=== PATIENT | male | born 1960 | race Caucasian/White ===

== ENCOUNTER 2020-02-13 17:18 | Outpatient (CLI) | payer BC, SELFPAY ==
--- NOTE | ~2020-02-13 | XR_ITS ---
XR ankle LT 2V 02/13/2020 17:40 Indication: Left ankle pain Procedure: 2 views left ankle Comparison: 2 views left ankle Findings: No fracture, subluxation or dislocation. There are degenerative calcaneal enthesophytes. An kle mortise intact. Lisfranc joint intact. No foreign bodies. Impression: 1: No acute bone or joint abnormality. Reviewed, dictated and finalized at location A. Impression: 1: No acute bone or joint abnormality.
[2020-02-13 18:13] LABS: Hematocrit 40.8 % (42.0-52.0); Hemoglobin 14.7 g/dL (14.0-18.0); Mean Corpuscular Volume 91.7 fl (80-100); Mean Platelet Volume 9.1 fl (7.4-10.4); Platelet Count Result 183 k/mm3 (150-375); Red Blood Count 4.45 M/mm3 (4.6-6.20); Red Cell Distribution Width 12.6 % (11.5-14.5); White Blood Count 6.8 K/mm3 (4.5-10.0)
[2020-02-13 18:27] LABS: Blood Urea Nitrogen 19 mg/dL (9-20); Calcium 9.4 mg/dL (8.4-10.2); Carbon Dioxide 26 mmol/L (22-30); Chloride 104 mmol/L (98-107); Estimated Glomerular Filt Rate > 60; Glucose 168 mg/dL (75-110); Potassium 4.5 mmol/L (3.4-5.0); Sodium 134 mmol/L (137-145); Uric Acid 8.3 mg/dL (3.5-8.5)
== END 2020-02-13 17:19 | disposition home or self-care (01) ==
PROVIDERS: PCP Family Medicine; Visit Provider Nurse Practitioner Family
DX: M79.673 Pain in unspecified foot (principal)
CPT/HCPCS: 36415; 73600; 80048; 84550; 85027

== ENCOUNTER 2021-06-19 09:56 | Outpatient (CLI) | payer BC, SELFPAY ==
--- NOTE | 2021-06-19 11:15 | NEURO_ITS ---
Impression: # Complains of numbness of feet. History of type II diabetes. # Distal neuropathy. # EDB needle/EMG exam is neurogenic. # Clinical correlation recommended. Nerve Conduction Studies Anti Sensory Summary Table Stim Site NR Peak (ms) P-T Amp (?V) Site1 Site2 Delta-P (ms) Dist (cm) Bertrand (m/s) Left Sup Fibular Anti Sensory (Ant Lat Mall) 14 cm 4.0 21.5 14 cm Ant Lat Mall 4.0 16.0 40 Right Sup Fibular Anti Sensory (Ant Lat Mall) 14 cm 3.8 8.1 14 cm Ant Lat Mall 3.8 16.0 42 Left Sural Anti Sensory (Lat Mall) Calf 4.0 5.5 Calf Lat Mall 4.0 16.0 40 Right Sural Anti Sensory (Lat Mall) Calf 3.5 5.7 Calf Lat Mall 3.5 16.0 46 Motor Summary Table Stim Site NR Onset (ms) O-P Amp (mV) Site1 Site2 Delta-0 (ms) Dist (cm) Bertrand (m/s) Left Peroneal Motor (Vastus Med) Ankle 5.6 3.2 Popit Ankle 9.2 39.0 42 Popit 14.8 2.6 Right Peroneal Motor (Vastus Med) Ankle 5.2 1.9 Popit Ankle 7.8 35.0 45 Popit 13.0 2.4 Left Tibial Motor (Abd Vinson Brev) Ankle 5.7 4.6 Knee Ankle 9.5 42.0 44 Knee 15.2 2.9 Right Tibial Motor (Abd Vinson Brev) Ankle 5.7 4.6 Knee Ankle 9.0 40.0 44 Knee 14.7 3.3 F Wave Studies NR F-Lat (ms) L-R F-Lat (ms) Left Peroneal (Mrkrs) (EDB) 56.58 0.53 Right Peroneal (Mrkrs) (EDB) 56.06 0.53 Left Tibial (Mrkrs) (Abd Hallucis) 56.73 0.09 Right Tibial (Mrkrs) (Abd Hallucis) 56.65 0.09 EMG Side Muscle Nerve Root Ins Act Fibs Amp Dur Recrt Comment Right AntTibialis Dp Br Fibular L4-5 Nml Nml Nml Nml Nml Right Gastroc Tibial S1-2 Nml Nml Nml Nml Nml Right Fibularis Long Sup Br Fibular L5-S1 Nml Nml Nml Nml Nml Right Flex Dig Long Tibial L5-S2 Nml Nml Nml Nml Nml Right Ext Dig Brev Dp Br Fibular L5, S1 Nml Nml Incr >12ms Reduced Left AntTibialis Dp Br Fibular L4-5 Nml Nml Nml Nml Nml Left Gastroc Tibial S1-2 Nml Nml Nml Nml Nml Left Fibularis Long Sup Br Fibular L5-S1 Nml Nml Nml Nml Nml Left Flex Dig Long Tibial L5-S2 Nml Nml Nml Nml Nml Left Ext Dig Brev Dp Br Fibular L5, S1 Nml Nml Incr >12ms Reduced MTDD
== END 2021-06-19 09:57 | disposition home or self-care (01) ==
LOC: ANHNEURO 09:56
PROVIDERS: PCP Family Medicine; Visit Provider Family Medicine
DX: R20.0 Anesthesia of skin (principal); G62.9 Polyneuropathy, unspecified
CPT/HCPCS: 95886; 95910

== ENCOUNTER 2022-04-28 10:19 | Outpatient (CLI) | payer BC, SELFPAY ==
[2022-04-28 10:29] LABS: Hemoglobin 13.9 g/dL (14.0-18.0); Mean Corpuscular HGB Conc 33.9 g/dl (32-36); Mean Corpuscular Hemoglobin 33.5 pg (26-34); Mean Corpuscular Volume 98.8 fl (80-100); Mean Platelet Volume 9.1 fl (7.4-10.4); Platelet Count Result 154 k/mm3 (150-375); Red Blood Count 4.15 M/mm3 (4.6-6.20); Red Cell Distribution Width 11.9 % (11.5-14.5); White Blood Count 7.3 K/mm3 (4.5-10.0)
[2022-04-28 10:42] LABS: Alanine Aminotransferase 25 U/L (6-50); Alkaline Phosphatase 82 U/L (38-126); Anion Gap 7 mmol/L (8-16); Aspartate Amino Transferase 22 U/L (17-59); Bilirubin,Total 0.4 mg/dL (0.2-1.3); Blood Urea Nitrogen 28 mg/dL (9-20); Calcium 8.7 mg/dL (8.4-10.2); Carbon Dioxide 25 mmol/L (22-30); Chloride 107 mmol/L (98-107); Cholesterol 137 mg/dL (0-200); Estimated Glomerular Filt Rate 48; Glucose 206 mg/dL (65-110); HDL Direct 36 mg/dL; Sodium 139 mmol/L (137-145); Triglycerides 269 mg/dL (<150)
[2022-04-28 10:52] LABS: LDL Cholesterol Direct 53 mg/dL
[2022-04-28 11:11] LABS: Prostate Specific Antigen 1.5 ng/mL (< OR = 4.0)
== END 2022-04-28 10:20 | disposition home or self-care (01) ==
PROVIDERS: PCP Family Medicine; Visit Provider Family Medicine
DX: Z12.5 Encounter for screening for malignant neoplasm of prostate (principal); E78.2 Mixed hyperlipidemia; Z13.220 Encounter for screening for lipoid disorders; I10 Essential (primary) hypertension; G62.9 Polyneuropathy, unspecified
CPT/HCPCS: 36415; 80048; 80061; 80076; 82607; 84153; 85027; G0103

== ENCOUNTER 2023-01-06 11:46 | Outpatient (CLI) | payer BC, SELFPAY ==
[2023-01-06 12:17] LABS: Mean Corpuscular HGB Conc 33.3 g/dl (32-36); Mean Corpuscular Hemoglobin 32.3 pg (26-34); Mean Corpuscular Volume 96.8 fl (80-100); Mean Platelet Volume 9.4 fl (7.4-10.4); Platelet Count Result 168 k/mm3 (150-375); Red Blood Count 4.34 M/mm3 (4.6-6.20); Red Cell Distribution Width 12.3 % (11.5-14.5); White Blood Count 7.8 K/mm3 (4.5-10.0)
[2023-01-06 12:33] LABS: Alanine Aminotransferase 23 U/L (6-50); Albumin Level 4.1 g/dL (3.5-5.1); Alkaline Phosphatase 77 U/L (38-126); Anion Gap 9 mmol/L (8-16); Aspartate Amino Transferase 24 U/L (17-59); Bilirubin,Total 0.6 mg/dL (0.2-1.3); Blood Urea Nitrogen 22 mg/dL (9-20); Calcium 8.9 mg/dL (8.4-10.2); Carbon Dioxide 26 mmol/L (22-30); Chloride 105 mmol/L (98-107); Estimated Glomerular Filt Rate 56; Glucose 120 mg/dL (65-110); Potassium 4.9 mmol/L (3.4-5.0); Sodium 140 mmol/L (137-145)
[2023-01-06 12:47] LABS: Free T4 Free Thyroxine 1.01 ng/mL (0.78-2.19)
[2023-01-06 12:55] LABS: MALB Creatinine Ratio 11.9 mg/g (0-30); Microalbumin Urine Random 14.1 mg/L (0-16.7)
== END 2023-01-06 11:47 | disposition home or self-care (01) ==
PROVIDERS: PCP Family Medicine; Visit Provider Nurse Practitioner Family
DX: R53.83 Other fatigue (principal); I10 Essential (primary) hypertension; E11.9 Type 2 diabetes mellitus without complications; R63.4 Abnormal weight loss
CPT/HCPCS: 36415; 80053; 82043; 84439; 84443; 85027

== ENCOUNTER 2023-03-24 09:29 | Outpatient (CLI) | payer BC, SELFPAY ==
[2023-03-24 10:16] LABS: Hematocrit 42.8 % (42.0-52.0); Hemoglobin 14.3 g/dL (14.0-18.0); Mean Corpuscular HGB Conc 33.4 g/dl (32-36); Mean Corpuscular Hemoglobin 32.9 pg (26-34); Mean Corpuscular Volume 98.4 fl (80-100); Mean Platelet Volume 9.5 fl (7.4-10.4); Platelet Count Result 168 k/mm3 (150-375); Red Blood Count 4.35 M/mm3 (4.6-6.20); Red Cell Distribution Width 12.4 % (11.5-14.5); White Blood Count 7.6 K/mm3 (4.5-10.0)
[2023-03-24 10:27] LABS: Alanine Aminotransferase 18 U/L (6-50); Albumin Level 4.3 g/dL (3.5-5.1); Alkaline Phosphatase 86 U/L (38-126); Anion Gap 8 mmol/L (8-16); Aspartate Amino Transferase 22 U/L (17-59); Bilirubin,Total 0.7 mg/dL (0.2-1.3); Blood Urea Nitrogen 39 mg/dL (9-20); Calcium 9.2 mg/dL (8.4-10.2); Carbon Dioxide 27 mmol/L (22-30); Chloride 105 mmol/L (98-107); Cholesterol 152 mg/dL (0-200); Estimated Glomerular Filt Rate 52; Glucose 152 mg/dL (65-110); HDL Direct 40 mg/dL; Potassium 4.6 mmol/L (3.4-5.0); Sodium 140 mmol/L (137-145); Triglycerides 169 mg/dL (<150)
[2023-03-24 10:38] LABS: LDL Cholesterol Direct 81 mg/dL
== END 2023-03-24 09:30 | disposition home or self-care (01) ==
LOC: ANHLAB 09:31
PROVIDERS: PCP Family Medicine; Visit Provider Family Medicine
DX: E78.2 Mixed hyperlipidemia (principal); I10 Essential (primary) hypertension; Z13.220 Encounter for screening for lipoid disorders; G62.9 Polyneuropathy, unspecified
CPT/HCPCS: 36415; 80048; 80061; 80076; 82607; 84443; 85027

== ENCOUNTER 2023-03-31 13:23 | Outpatient (CLI) | payer BC, SELFPAY ==
--- NOTE | ~2023-03-31 | CT_ITS ---
EXAMINATION: CT abdomen pelvis w con DATE: 03/31/2023 13:52 INDICATION: Unspecified abdominal pain. Left lower quadrant abdominal pain for 4 weeks. TECHNIQUE: Computed tomography (CT) of the abdomen and pelvis was performed with 100 mL Omnipaque 350 intravenous contrast. Automated exposure control and iterative reconstruction technique were employe d. The dose-length product was 527.00 mGy-cm. COMPARISON: None. FINDINGS: The visualized portions of the lung bases demonstrate minimal atelectasis. No pleural effus ion. The heart size is normal. No pericardial effusion. There are cysts in the liver measuring up to 7 mm. The gallbladder is normal. There are low-attenuation lesions in the spleen measuring up to 5 mm , likely benign lesions such as granulomatous disease. The pancreas and adrenal glands are normal. Th ere is cortical thinning of the kidneys. There are no dilated loops of bowel. The appendix is normal. There is diverticulosis of the colon without evidence of diverticulitis. There are bilateral inguina l hernias containing fat. The prostate is moderately enlarged. There are no pathologically enlarged l ymph nodes. There is no free intraperitoneal fluid. There are chronic bilateral L5 pars defects. Ther e is 6 mm anterolisthesis of L5 on S1. There is severe lower lumbar spondylosis. There is mild chroni c anterior wedging of T11-L1 vertebral bodies. IMPRESSION: 1. Bilateral inguinal hernias containing fat. Reviewed, dictated and finalized at location A.
== END 2023-03-31 13:24 | disposition home or self-care (01) ==
PROVIDERS: PCP Family Medicine; Visit Provider Family Medicine
DX: R10.9 Unspecified abdominal pain (principal); K40.90 Unilateral inguinal hernia, without obstruction or gangrene, not specified as recurrent
CPT/HCPCS: 74177; Q9967

== ENCOUNTER 2023-07-17 00:44 | Day surgery (SDC) | payer BC, SELFPAY ==
[2023-07-06 09:28] VITALS: BMI 27.4
--- NOTE | 2023-07-15 09:48 | SUR.PREOP ---
Patient called regarding upcoming procedure. Message left on patient's voicemail regarding preop instructions, appointment times, and procedure prep.
--- NOTE | 2023-07-16 17:43 | PM.HPGS ---
History of Present Illness History of Present Illness Consent: Risks, benefits, and alternatives have been discussed and questions answered. Patient agrees to proceed with procedure. Chief complaint: neoplasm screening Narrative: Kirill Myers is a 62 year old male Referred for colon cancer screening. Review of Systems Review of Systems: All systems reviewed & are unremarkable except as noted in HPI and below PMFSH Past Medical History Medical History Ankle weakness Bilateral inguinal hernia BMI 28.0-28.9,adult BMI 29.0-29.9,adult BMI 31.0-31.9,adult BMI 32.0-32.9,adult BMI greater than 30 Degeneration of lumbar or lumbosacral intervertebral disc Essential (primary) hypertension Hypertension Kidney stones Left leg numbness Mixed hyperlipidemia Neuropathy Screen for colon cancer Surgical History Surgical History History of carpal tunnel surgery 2002 Hx of neck surgery 2012 Family History Family History Father Lung cancer Colon polyp Thyroid activity decreased Mother Breast cancer Sibling Breast cancer Brain cancer Sibling COPD (chronic obstructive pulmonary disease) Other Carcinoma of colon Diabetes mellitus Social History Social History Smoking status: Never smoker Second hand tobacco smoke exposure: Yes Alcohol intake: current Alcohol use details: Socially Substance use: never Substance use type: does not use Lack of Transportation: No Lack of Food: Never True Current Housing: I Have Housing Concerned About Future Housing: No Difficulty Paying Gas/Electric Bills: No Difficulty Paying for Meds: No Currently Unemployed: No Education: Trade/Vocational Certificate Difficulty w/ Childcare or Family Care: No Living arrangements: with family Occupation/Education: retired 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 Gender identity (if verbalized by the patient): Male Meds Home Medications and Allergies Home Medications Medication Instructions Recorded Confirmed Type rosuvastatin 10 mg tablet 10 mg PO DAILY #90 tabs 09/01/22 07/17/23 Rx meloxicam 15 mg tablet 15 mg PO DAILY #90 tabs 01/23/23 07/17/23 Rx dapagliflozin propanediol 10 mg See Rx Instructions .Route 03/02/23 07/17/23 Rx tablet (Farxiga) .COMPLEX #90 tabs escitalopram oxalate 20 mg tablet See Rx Instructions .Route 03/02/23 07/17/23 Rx .COMPLEX #90 tabs lisinopril 10 mg tablet 5 mg PO DAILY #45 tabs 03/24/23 07/17/23 Rx dulaglutide 1.5 mg/0.5 mL 1.5 mg (0.5 mL) subcut WEEKLY #6 mL 06/08/23 07/17/23 Rx subcutaneous pen injector (Trulicity) metformin 500 mg tablet,extended 1,000 mg PO BID 07/06/23 07/17/23 History release 24 hr Allergies Allergy/AdvReac Type Severity Reaction Status Date / Time No Known Allergies Allergy Verified 07/17/23 08:15 Exam Const: General: alert Orientation/consciousness: patient oriented x3 Resp: Auscultation: clear to auscultation bilaterally Cardio: Rhythm: regular rhythm GI: GI Palp: Yes Soft to palpation and No Tenderness to palpation present (GI) Neuro: General: patient oriented x3 Assessment and Plan Assessment and plan (1) Screen for colon cancer: Code(s): Z12.11 - Encounter for screening for malignant neoplasm of colon Status: Acute Assessment and Plan: Colonoscopy with possible biopsy or polypectomy or cautery or injection of substances.
[2023-07-17 08:20] VITALS: BP 146/77; PULSE 83; RESP 16; TEMP 35.8; O2SAT 100
[2023-07-17] MEDS: LACTATED RINGERS 1,000 ML 150 ML IV CONT (08:27)
[2023-07-17 08:32] LABS: Glucose Point of Care 159 mg/dl (65-105)
--- NOTE | 2023-07-17 08:42 | WPDANESEPPF ---
Anes - Initial Pre Proc Eval Procedure: Operation Date: 07/17/23 09:30 Proposed Procedures p Screening Colonoscopy - Jaison Díaz MD Date/Time: 07/17/23 08:42 Surgeon: Jaison Díaz MD Pre Op Diagnosis: neoplasm screening Patient Data Age: 62 Gender: M Height: 1.73 m Weight: 82.7 kg Last Vital Signs Temp 96.4 F L 07/17/23 08:20 Pulse 83 07/17/23 08:20 Resp 16 07/17/23 08:20 BP 146/77 H 07/17/23 08:20 Pulse Ox 100 07/17/23 08:20 O2 Del Method Room Air 07/17/23 08:20 Allergies Allergy/AdvReac Type Severity Reaction Status Date / Time No Known Allergies Allergy Verified 07/17/23 08:15 Home Medications Medication Instructions Recorded Confirmed Type rosuvastatin 10 mg tablet 10 mg PO DAILY #90 tabs 09/01/22 07/17/23 Rx meloxicam 15 mg tablet 15 mg PO DAILY #90 tabs 01/23/23 07/17/23 Rx dapagliflozin propanediol 10 mg See Rx Instructions .Route 03/02/23 07/17/23 Rx tablet (Farxiga) .COMPLEX #90 tabs escitalopram oxalate 20 mg tablet See Rx Instructions .Route 03/02/23 07/17/23 Rx .COMPLEX #90 tabs lisinopril 10 mg tablet 5 mg PO DAILY #45 tabs 03/24/23 07/17/23 Rx dulaglutide 1.5 mg/0.5 mL 1.5 mg (0.5 mL) subcut WEEKLY #6 mL 06/08/23 07/17/23 Rx subcutaneous pen injector (Trulicity) metformin 500 mg tablet,extended 1,000 mg PO BID 07/06/23 07/17/23 History release 24 hr Laboratory Tests 07/17/23 08:29 POC Capillary Glucose 159 H mg/dl (65-105) Patient hx anesthesia problems: none Family hx anesthesia problems: none Results Review: All pre-operative results and documents have been reviewed as part of the pre-operative evaluation. [facility] Past Medical History Medical History Ankle weakness Bilateral inguinal hernia BMI 28.0-28.9,adult BMI 29.0-29.9,adult BMI 31.0-31.9,adult BMI 32.0-32.9,adult BMI greater than 30 Degeneration of lumbar or lumbosacral intervertebral disc Essential (primary) hypertension Hypertension Kidney stones Left leg numbness Mixed hyperlipidemia Neuropathy Screen for colon cancer Surgical History Surgical History History of carpal tunnel surgery 2002 Hx of neck surgery 2012 Family History Family History Father Lung cancer Colon polyp Thyroid activity decreased Mother Breast cancer Sibling Breast cancer Brain cancer Sibling COPD (chronic obstructive pulmonary disease) Other Carcinoma of colon Diabetes mellitus Social History Social History Smoking status: Never smoker Second hand tobacco smoke exposure: Yes Alcohol intake: current Alcohol use details: Socially Substance use: never Substance use type: does not use Lack of Transportation: No Lack of Food: Never True Current Housing: I Have Housing Concerned About Future Housing: No Difficulty Paying Gas/Electric Bills: No Difficulty Paying for Meds: No Currently Unemployed: No Education: Trade/Vocational Certificate Difficulty w/ Childcare or Family Care: No Living arrangements: with family Occupation/Education: retired 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
[2023-07-17 09:27] VITALS: BP 119/75; PULSE 79; RESP 20; O2SAT 100
[2023-07-17 09:37] VITALS: BP 111/74; PULSE 78; RESP 21; O2SAT 100
[2023-07-17 09:47] VITALS: BP 108/81; PULSE 75; RESP 26; O2SAT 100
== END 2023-07-17 09:52 | disposition home or self-care (01) ==
PROVIDERS: PCP Family Medicine; Visit Provider Internal Medicine Gastroenterology
PROC: 0DJD8ZZ Inspection of Lower Intestinal Tract, Via Natural or Artificial Opening Endoscopic (ICD-10-PCS; CPT 45378; principal; 2023-07-17 09:30)
DX: Z12.11 Encounter for screening for malignant neoplasm of colon (principal); K57.30 Diverticulosis of large intestine without perforation or abscess without bleeding; Q27.33 Arteriovenous malformation of digestive system vessel; Z80.0 Family history of malignant neoplasm of digestive organs; I10 Essential (primary) hypertension; E78.2 Mixed hyperlipidemia; G62.9 Polyneuropathy, unspecified; Z79.84 Long term (current) use of oral hypoglycemic drugs; Z79.85 Long-term (current) use of injectable non-insulin antidiabetic drugs
CPT/HCPCS: 45388; 82948; J2704; J7120

== ENCOUNTER 2024-04-12 07:54 | Outpatient (CLI) | payer BC, SELFPAY ==
--- NOTE | ~2024-04-12 | XR_ITS ---
EXAMINATION: XR UGIAC w kub DATE: 04/12/2024 09:07 INDICATION: Epigastric pain TECHNIQUE: Thick barium contrast with gas effervescent crystals were administered orally. Fluoroscop ic images of the esophagus, stomach, and proximal duodenum were obtained in various projections. Ther e are 38 images. FINDINGS: There is a small Zenker's diverticulum. Otherwise, esophageal mucosal pattern is within normal limits . There is no hiatal hernia. No gastroesophageal reflux witnessed during the course of the study. The gastric folds are normal. The proximal duodenum is also normal in appearance. IMPRESSION: 1. Small Zenker's diverticulum. Reviewed, dictated and finalized at location B.
--- NOTE | ~2024-04-12 | US_ITS ---
Abdominal Sonogram: Real-time sonographic imaging of the abdomen was performed. Clinical History: Epigastric pain Findings: The liver appears normal with no evidence of mass lesion or bile duct dilatation. Main por frank vein demonstrates normal direction of flow. The spleen is normal in size without evidence of foca l lesion. The gallbladder is well distended, and appears normal with no evidence of gallstone or wal l thickening. The common bile duct measures 4 mm. The visualized pancreas, aorta, and IVC are unrema rkable. The right kidney measures 10.1 cm in length and the left kidney measures 10.3 cm. There is no hydronephrosis or renal calculus. Impression: Unremarkable abdominal ultrasound. Reviewed, dictated and finalized at location . Impression: Unremarkable abdominal ultrasound.
== END 2024-04-12 07:55 | disposition home or self-care (01) ==
LOC: MICIMG 07:55
PROVIDERS: PCP Family Medicine; Visit Provider Family Medicine
DX: R10.13 Epigastric pain (principal); K22.5 Diverticulum of esophagus, acquired
CPT/HCPCS: 74246; 76700

== ENCOUNTER 2024-05-10 01:10 | Day surgery (SDC) | payer BC, SELFPAY ==
[2024-04-29 11:16] VITALS: BMI 28.2
[2024-05-10 14:15] VITALS: BP 129/77; PULSE 74; RESP 18; TEMP 36.1; O2SAT 100; BMI 29.2
--- NOTE | 2024-05-10 14:41 | WPDANESEPPF ---
Anes - Initial Pre Proc Eval Procedure: Operation Date: 05/10/24 15:30 Proposed Procedures p Esophagogastroduodenoscopy - Antony Clayton MD Date/Time: 05/10/24 14:41 Surgeon: Antony Clayton MD Pre Op Diagnosis: Diverticulum of esophagus Patient Data Age: 63 Gender: M Height: 1.7 m Weight: 84.9 kg Last Vital Signs Temp 96.9 F L 05/10/24 14:15 Pulse 74 05/10/24 14:15 Resp 18 05/10/24 14:15 BP 129/77 05/10/24 14:15 Pulse Ox 100 05/10/24 14:15 O2 Del Method Room Air 05/10/24 14:15 Allergies Allergy/AdvReac Type Severity Reaction Status Date / Time No Known Allergies Allergy Verified 05/10/24 14:26 Home Medications Medication Instructions Recorded Confirmed Type rosuvastatin 10 mg tablet See Rx Instructions .Route 08/27/23 05/10/24 Rx .COMPLEX #90 tabs metformin 500 mg tablet,extended See Rx Instructions .Route 10/29/23 05/10/24 Rx release 24 hr .COMPLEX #360 tabs lisinopril 10 mg tablet 5 mg PO DAILY #45 tabs 12/24/23 05/10/24 Rx dulaglutide 1.5 mg/0.5 mL 1.5 mg (0.5 mL) subcut WEEKLY #6 mL 01/08/24 05/10/24 Rx subcutaneous pen injector (Trulicity) dapagliflozin propanediol 10 mg See Rx Instructions .Route 02/23/24 05/10/24 Rx tablet (Farxiga) .COMPLEX #90 tabs escitalopram oxalate 20 mg tablet See Rx Instructions .Route 02/23/24 05/10/24 Rx .COMPLEX #90 tabs meloxicam 15 mg tablet See Rx Instructions .Route 04/21/24 05/10/24 Rx .COMPLEX #90 tabs omeprazole 40 mg capsule,delayed 40 mg PO DAILY #30 caps 04/27/24 05/10/24 Rx release Patient hx anesthesia problems: none Family hx anesthesia problems: none Results Review: All pre-operative results and documents have been reviewed as part of the pre-operative evaluation. [facility] Past Medical History Medical History Ankle weakness Arthritis of both hands Bilateral inguinal hernia Degeneration of lumbar or lumbosacral intervertebral disc Epigastric pain Essential (primary) hypertension Hypertension Kidney stones Left leg numbness Mixed hyperlipidemia Neuropathy Screen for colon cancer Zenker's diverticulum Surgical History Surgical History History of carpal tunnel surgery 2002 Hx of colonoscopy Hx of neck surgery 2013 Family History Family History Father Lung cancer Colon polyp Thyroid activity decreased Mother Breast cancer Sibling Breast cancer Brain cancer Sibling COPD (chronic obstructive pulmonary disease) Other Carcinoma of colon Diabetes mellitus Social History Social History Smoking status: Never smoker Second hand tobacco smoke exposure: Yes Alcohol intake: current Drinks per week: 6 Alcohol use details: Socially Substance use: never Substance use type: does not use Do You Feel Safe in your Home?: Yes Lack of Transportation: No Lack of Food: Never True Current Housing: I Have Housing Concerned About Future Housing: No Difficulty Paying Gas/Electric Bills: No Difficulty Paying for Meds: No Currently Unemployed: No Education: Trade/Vocational Certificate Difficulty w/ Childcare or Family Care: No Living arrangements: alone Occupation/Education: retired 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 ) Neurological: alert and oriented Last oral intake: >/= 8 hours ASA classification: III E
[2024-05-10 14:47] LABS: Glucose Point of Care 114 mg/dl (65-105)
[2024-05-10] MEDS: LACTATED RINGERS 1,000 ML 150 ML IV CONT (14:48)
--- NOTE | 2024-05-10 14:54 | PM.HPGS ---
History of Present Illness History of Present Illness Consent: Risks, benefits, and alternatives have been discussed and questions answered. Patient agrees to proceed with procedure. Chief complaint: Diverticulum of esophagus Narrative: Kirill Myers is a 63 year old male with some abdominal discomfort about 2 months ago and emesis, then PCP ordered UGI that showed possible zenker diverticula. Started on omeprazole Review of Systems Review of Systems: All systems reviewed & are unremarkable except as noted in HPI and below PMFSH Past Medical History Medical History (Updated 05/10/24 @ 14:55 by Antony Clayton MD) Abnormal UGI series Ankle weakness Arthritis of both hands Bilateral inguinal hernia Degeneration of lumbar or lumbosacral intervertebral disc Epigastric pain Essential (primary) hypertension Hypertension Kidney stones Left leg numbness Mixed hyperlipidemia Neuropathy Screen for colon cancer Zenker's diverticulum Surgical History Surgical History History of carpal tunnel surgery 2002 Hx of colonoscopy Hx of neck surgery 2013 Family History Family History Father Lung cancer Colon polyp Thyroid activity decreased Mother Breast cancer Sibling Breast cancer Brain cancer Sibling COPD (chronic obstructive pulmonary disease) Other Carcinoma of colon Diabetes mellitus Social History Social History Smoking status: Never smoker Second hand tobacco smoke exposure: Yes Alcohol intake: current Drinks per week: 6 Alcohol use details: Socially Substance use: never Substance use type: does not use Do You Feel Safe in your Home?: Yes Lack of Transportation: No Lack of Food: Never True Current Housing: I Have Housing Concerned About Future Housing: No Difficulty Paying Gas/Electric Bills: No Difficulty Paying for Meds: No Currently Unemployed: No Education: Trade/Vocational Certificate Difficulty w/ Childcare or Family Care: No Living arrangements: alone Occupation/Education: retired 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 Gender identity (if verbalized by the patient): Male Meds Home Medications and Allergies Home Medications Medication Instructions Recorded Confirmed Type rosuvastatin 10 mg tablet See Rx Instructions .Route 08/27/23 05/10/24 Rx .COMPLEX #90 tabs metformin 500 mg tablet,extended See Rx Instructions .Route 10/29/23 05/10/24 Rx release 24 hr .COMPLEX #360 tabs lisinopril 10 mg tablet 5 mg PO DAILY #45 tabs 12/24/23 05/10/24 Rx dulaglutide 1.5 mg/0.5 mL 1.5 mg (0.5 mL) subcut WEEKLY #6 mL 01/08/24 05/10/24 Rx subcutaneous pen injector (Trulicity) dapagliflozin propanediol 10 mg See Rx Instructions .Route 02/23/24 05/10/24 Rx tablet (Farxiga) .COMPLEX #90 tabs escitalopram oxalate 20 mg tablet See Rx Instructions .Route 02/23/24 05/10/24 Rx .COMPLEX #90 tabs meloxicam 15 mg tablet See Rx Instructions .Route 04/21/24 05/10/24 Rx .COMPLEX #90 tabs omeprazole 40 mg capsule,delayed 40 mg PO DAILY #30 caps 04/27/24 05/10/24 Rx release Allergies Allergy/AdvReac Type Severity Reaction Status Date / Time No Known Allergies Allergy Verified 05/10/24 14:26 Vital Signs Vital Signs - 24 hr 05/10/24 14:15 Temperature 96.9 F L Pulse Rate 74 Respiratory Rate 18 Blood Pressure 129/77 Pulse Oximetry 100 Oxygen Delivery Room Air Exam Const: General: comfortable and no acute distress HENMT: Face/Nose/Sinus: Normal nares present Eyes: General: appearance normal, both eyes and all related structures Neck: Neck: no JVD Resp: Auscultation: clear to auscultation bilaterally Cardio: Rate: regular rate Rhythm: regular rhyth
[2024-05-10 15:09] VITALS: BP 129/77; PULSE 96; RESP 18; O2SAT 100
[2024-05-10 15:19] VITALS: BP 110/74; PULSE 95; RESP 19; O2SAT 100
[2024-05-10 15:29] VITALS: BP 118/82; PULSE 80; RESP 22; O2SAT 98
== END 2024-05-10 15:40 | disposition home or self-care (01) ==
PROVIDERS: PCP Family Medicine; Visit Provider Internal Medicine Gastroenterology
PROC: 0DJ08ZZ Inspection of Upper Intestinal Tract, Via Natural or Artificial Opening Endoscopic (ICD-10-PCS; CPT 43235; principal; 2024-05-10 15:30)
DX: R93.3 Abnormal findings on diagnostic imaging of other parts of digestive tract (principal); K31.89 Other diseases of stomach and duodenum; K22.5 Diverticulum of esophagus, acquired; I10 Essential (primary) hypertension; E78.2 Mixed hyperlipidemia; M19.042 Primary osteoarthritis, left hand; M19.041 Primary osteoarthritis, right hand; M51.379 Other intervertebral disc degeneration, lumbosacral region without mention of lumbar back pain or lower extremity pain; Z79.84 Long term (current) use of oral hypoglycemic drugs; Z79.85 Long-term (current) use of injectable non-insulin antidiabetic drugs; Z98.890 Other specified postprocedural states; Z87.442 Personal history of urinary calculi; Z80.1 Family history of malignant neoplasm of trachea, bronchus and lung; Z80.3 Family history of malignant neoplasm of breast; Z80.8 Family history of malignant neoplasm of other organs or systems; Z80.0 Family history of malignant neoplasm of digestive organs
CPT/HCPCS: 43239; 82948; 88305; J2003; J2704; J7120